=== PATIENT | male | born 1950 | race Caucasian/White ===

== ENCOUNTER 2018-12-07 13:25 | Outpatient (CLI) | payer OTHER | END 2018-12-07 21:09 | disposition home or self-care (01) | LOC: SLB 13:25 | PROVIDERS: ATTEND Psychiatry & Neurology Psychiatry | DX: Z00.00 Encounter for general adult medical examination without abnormal findings (principal) | CPT/HCPCS: 36415; 80164-TC ==

== ENCOUNTER 2018-12-22 10:26 | Outpatient (CLI) | payer OTHER | END 2018-12-22 19:50 | disposition home or self-care (01) | LOC: SLB 10:26 | PROVIDERS: ATTEND Psychiatry & Neurology Psychiatry | DX: Z00.00 Encounter for general adult medical examination without abnormal findings (principal) | CPT/HCPCS: 36415; 80164-TC ==

== ENCOUNTER 2018-12-23 09:58 | Outpatient (CLI) | payer OTHER ==
[2018-12-23 11:19] LABS: ALBUMIN 2.9 g/dL (3.4-4.8); CALCIUM 8.4 mg/dL (8.4-11.0); CREATININE 0.94 mg/dL (0.55-1.30); POTASSIUM 3.7 mmol/L (3.5-5.1); TOTAL BILIRUBIN 0.9 mg/dL (0.0-1.0)
== END 2018-12-23 20:46 | disposition home or self-care (01) ==
LOC: SLB 09:58
PROVIDERS: ATTEND Psychiatry & Neurology Psychiatry
DX: Z00.00 Encounter for general adult medical examination without abnormal findings (principal)
CPT/HCPCS: 36415; 80053

== ENCOUNTER 2018-12-31 19:37 | Emergency (ER) | payer OTHER, MEDICAID ==
[~2018-12-31] VITALS: Ht 167.6 cm; Wt 59.0 kg
[2018-12-31 19:40] VITALS: BP_SYST 107
--- NOTE | 2018-12-31 19:59 | NUR ---
Placed in room 7 . Placed on site monitor, blood pressure machine and pulse oximeter. To gown for exam. Side rails up. Report given to Angel DRAPER.
--- NOTE | 2018-12-31 20:05 | NUR ---
Pt BIB BLS from [facility] for medical clearance. According to EMS pt has been having poor intake and refusing PO medications. Pt is confused and attempting to get out of bed. Denies chest pain, SOB, N/V/D or any other symptoms at this time. Will continue to monitor.
--- NOTE | 2018-12-31 20:13 | NUR ---
PIEDAD Garcia at bedside examining patient.
[2018-12-31 20:50] LABS: BASOPHILS % (AUTO) 0.5 % (0.0-2.0); EOSINOPHILS % (AUTO) 0.4 % (0.0-4.0); HEMATOCRIT 44.5 % (36-54); HEMOGLOBIN 15.3 g/dL (14.0-18.0); LYMPHOCYTES # (AUTO) 2.2 K/uL (1.0-5.5); LYMPHOCYTES % (AUTO) 33.2 % (20.5-51.5); MEAN CORPUSCULAR HEMOGLOBIN 33 pg (27-31); MEAN CORPUSCULAR HGB CONC 34 % (32-36); MEAN CORPUSCULAR VOLUME 95 fL (79.0-98.0); MONOCYTES # (AUTO) 0.8 K/uL (0.0-1.0); MONOCYTES % (AUTO) 12.2 % (1.7-9.3); NEUTROPHILS # (AUTO) 3.5 K/uL (1.8-7.7); NEUTROPHILS % (AUTO) 53.7 % (40.0-70.0); PLATELET COUNT (AUTO) 160 K/uL (130-430); RED BLOOD CELL COUNT(AUTO) 4.67 MIL/uL (4.2-6.2); WHITE BLOOD COUNT (AUTO) 6.6 K/uL (4.8-10.8)
[2018-12-31 21:03] LABS: CREATININE 1.13 mg/dL (0.55-1.30); POTASSIUM 4.2 mmol/L (3.5-5.1)
[2018-12-31 21:09] LABS: ALBUMIN 3.6 g/dL (3.4-4.8); TOTAL BILIRUBIN 1.3 mg/dL (0.0-1.0)
--- NOTE | 2018-12-31 21:25 | NUR ---
# 16 FR In and Out catheter with use of sterile technique. Immediate return of 100 ml urine noted. Urine sample collected and sent to lab. Pt tolerated procedure well. Patient unable to toilet self.
[2018-12-31 21:39] LABS: CALCIUM 9.2 mg/dL (8.4-11.0)
[2018-12-31 21:48] LABS: BLOOD, URINE NEGATIVE (NEGATIVE); CLARITY/URINE CLEAR (CLEAR); COLOR,URINE YELLOW (YELLOW); GLUCOSE,URINE NEGATIVE (NEGATIVE); KETONES,URINE NEGATIVE (NEGATIVE); LEUKOCYTE ESTERASE ,URINE NEGATIVE (NEGATIVE); NITRITE, URINE NEGATIVE (NEGATIVE); PROTEIN URINE NEGATIVE (NEGATIVE)
[2018-12-31 21:56] LABS: BILIRUBIN,URINE 1+ (NEGATIVE)
--- NOTE | 2018-12-31 22:42 | NUR ---
Pt is resting in bed, no acute distress noted at this time. Will continue to monitor.
[2018-12-31 22:56] VITALS: BP_SYST 105
--- NOTE | 2018-12-31 22:58 | NUR ---
Patient to be transferred to [facility] Is being transferred due to higher level of care. Receiving facility has accepting physician and available space. ER physician has signed transfer form. Patient or responsible republican has agreed to transfer and signed form. Patient belongings inventoried and will be sent with patient. Copy of nursing notes, lab reports, EKG, Physicians Orders and X-rays to be sent with patient. Report called to Can DRAPER at receiving facility. Receiving physician is Dr. Armas. [facility] ambulance service has been called for transfer. ETA is 30.
== END 2018-12-31 22:58 ==
LOC: SED 19:37
DX: Z04.6 Encounter for general psychiatric examination, requested by authority (principal); R94.31 Abnormal electrocardiogram [ECG] [EKG]
CPT/HCPCS: 36415; 71045; 80053; 81003; 83605; 85025; 87040-TC; 87086; 93005; 99285